=== PATIENT | female | born 1990 | race Caucasian/White ===

== ENCOUNTER 2017-04-18 20:02 | Emergency (ER) | payer MEDICAID ==
[~2017-04-18] VITALS: Ht 165.1 cm; Wt 93.1 kg
[2017-04-18 20:09] VITALS: BP 145/97
[2017-04-18] MEDS ORDERED: HYDROcodone/APAP 5/325 TABLET PO ONE ×2 (21:30→22:00)
[2017-04-18] MEDS ORDERED: HYDROcodone/APAP 5/325 TABLET ONE (21:36)
[2017-04-18] MEDS ORDERED: CLON1TAB23 PO (21:41)
[2017-04-18] MEDS ORDERED: AMPH20TA2 PO (21:41)
== END 2017-04-18 22:28 | disposition home or self-care (01) ==
LOC: ED 22:22
DX: L01.01 Non-bullous impetigo (principal); G89.29 Other chronic pain; M54.5 Low back pain; Z90.89 Acquired absence of other organs
CPT/HCPCS: 99283